=== PATIENT | female | born 1945 | race Caucasian/White ===

== ENCOUNTER 2017-03-01 16:51 | Observation (INO) | payer BC ==
[2017-03-01] MEDS ORDERED: Aspirin Low Dose CHEW TAB* 81 MG PO ONE (17:12)
[2017-03-01 17:31] LABS: Hematocrit 42 % (35-47); Hemoglobin 13.5 g/dl (12.0-16.0); Mean Corpuscular HGB Conc 32 g/dl (31-36); Mean Corpuscular Hemoglobin 30 pg (27-31); Mean Corpuscular Volume 93 fL (80-97); Mean Platelet Volume 9 um3 (7.4-10.4); Red Blood Count 4.54 10^6/ul (4.0-5.4); Red Cell Distribution Width 14 % (10.5-15)
[2017-03-01 17:40] LABS: Albumin 3.6 g/dL (3.2-5.2); EGFR African American 90.7 (>60); EGFR Non-African American 70.5 (>60); Globulin 2.8 g/dL (2-4); Total Bilirubin 0.5 mg/dL (0.2-1.0); Total Protein 6.4 g/dL (6.4-8.9)
[2017-03-01 17:41] LABS: Troponin I 0.01 ng/mL (<0.04)
--- NOTE | 2017-03-01 18:06 | RAD ---
HISTORY: Chest pain COMPARISONS: None VIEWS:1: Single frontal portable view of the chest at 5:42 PM. The patient is obliqued to the left. FINDINGS: LINES AND TUBES: None. CARDIOMEDIASTINAL SILHOUETTE: The cardiomediastinal silhouette is normal for portable technique. PLEURA: The costophrenic angles are sharp. No pleural abnormalities are noted. LUNG PARENCHYMA: The lungs are clear. ABDOMEN: The upper abdomen is clear. There is no subphrenic gas. BONES AND SOFT TISSUES: No bone or soft tissue abnormalities are noted. IMPRESSION: NO ACTIVE CARDIOPULMONARY DISEASE.
[2017-03-01] MEDS ORDERED: NS 0.9% 1000 ML* 2,000 ML IV ONE (18:59)
[2017-03-01] MEDS ORDERED: Ondansetron INJ* 2 MG/ML VIAL IV ONE (18:59)
[2017-03-01] MEDS ORDERED: Acetaminophen TAB* 325 MG PO PRN (21:54)
[2017-03-01] MEDS ORDERED: Morphine INJ* 2 MG/ML 1 ML SYRINGE IV PRN (21:54)
[2017-03-01] MEDS ORDERED: Ondansetron INJ* 2 MG/ML VIAL IV PRN (21:54)
[2017-03-01] MEDS ORDERED: traMADol TAB* 50 MG PO PRN (21:56)
--- NOTE | 2017-03-01 22:03 | RAD ---
CLINICAL HISTORY: Abdominal pain, nausea, vomiting, diarrhea COMPARISON: None TECHNIQUE: Multiple contiguous axial CT scans were obtained of the abdomen and pelvis, without intravenous contrast enhancement. Coronal and sagittal multiplanar reformations are submitted for review. Oral contrast was not administered. FINDINGS: The study is limited by the lack of intravenous contrast. This limits evaluation of the solid organs and vasculature. LUNG BASES: There is a small pericardial effusion LIVER: There are innumerable low-attenuation lesions throughout the hepatic parenchyma. The largest measures 2 cm in size and 11 Hounsfield units in attenuation.. BILE DUCTS: There is no intrahepatic or extrahepatic biliary dilatation. GALLBLADDER: The gallbladder is not clearly visualized. PANCREAS: The pancreas is normal, without mass or ductal dilatation. SPLEEN: Normal in size and appearance. UPPER GI TRACT: Evaluation of the gastrointestinal tract is limited by incomplete gastric distention. The upper GI tract is unremarkable. SMALL BOWEL AND MESENTERY: The small bowel is normal in contour, course, and caliber. There is no obstruction or dilatation. COLON: The colon is normal in contour, course, caliber. There is no pericolonic inflammatory change. There is a tubular, vermiform, hollow viscus that is blind ending, and originates from the cecum, consistent with a normal appendix. There is no periappendiceal inflammatory change. This is best seen on axial images 78 through 89. ADRENALS: Normal bilaterally. KIDNEYS: The kidneys are normal in shape, size, contour, and axis. There is no hydronephrosis or nephrolithiasis. BLADDER: The bladder is smooth in contour. PELVIC ORGANS: The pelvic organs are not visualized. AORTA: The aorta is normal. IVC: An IVC filter is noted LYMPH NODES: There is no lymphadenopathy by size criteria. ABDOMINAL WALL: There is no evidence for abdominal wall hernia. BONES AND SOFT TISSUES: There is a scoliotic curvature of the spine. Degenerative changes are noted. The patient is status post left hip arthroplasty. OTHER: None IMPRESSION: 1. THERE ARE INNUMERABLE LOW-ATTENUATION HEPATIC PARENCHYMAL LESIONS. WHILE THESE MAY REPRESENT MULTIPLE SIMPLE CYSTS OR HEPATIC HEMANGIOMAS, NEOPLASM, INCLUDING METASTATIC DISEASE TO THE LIVER, IS ALSO WITHIN THE DIFFERENTIAL. RECOMMEND CONSIDERATION OF FURTHER EVALUATION WITH MULTIPHASE CONTRAST-ENHANCED LIVER PROTOCOL CT, CONTRAST-ENHANCED MRI OF THE ABDOMEN, AND/OR ULTRASOUND OF THE ABDOMEN IN THE NONACUTE SETTING. 2. SMALL PERICARDIAL EFFUSION.
[2017-03-01 22:22] LABS: C Reactive Protein 2.14 mg/L (< 5.00); Magnesium 2.2 mg/dL (1.9-2.7)
[2017-03-01 22:32] LABS: TSH (Thyroid Stimulating Horm) 2.42 mcIU/mL (0.34-5.60)
[2017-03-01] MEDS: Heparin VIAL(*) 5000 UNITS/ML VIAL (FIVE THOUSAND) SUBCUT SCH (22:52)
[2017-03-01 23:30] LABS: Urine Bilirubin Negative (Negative); Urine Glucose Negative (Negative); Urine Nitrite Negative (Negative)
[2017-03-02] MEDS ORDERED: Metoclopramide IV* 5 MG/ML 2 ML VIAL IV PRN (01:18)
--- NOTE | 2017-03-02 02:57 | HP ---
CC: Dr. Eligio Arroyo * HISTORY AND PHYSICAL: DATE OF ADMISSION: 03/01/17 PROVIDER: Joshua Hobson NP ATTENDING PHYSICIAN: Kirill Higginbotham MD *(as dictated by Joshua Hobson NP) . PRIMARY CARE PROVIDER: Dr. Eligio Arroyo. CHIEF COMPLAINT: Nausea, vomiting. HISTORY OF PRESENT ILLNESS: Ms. Ibrahim is a 71-year-old female who came in to the ER today via EMS services after having intractable nausea, vomiting with accompanying shortness of breath while home in her camper. The patient was seen by EMS services who expressed concerns for ST changes on the patient's EKG. She was brought to the hospital, but reportedly was not agreement with all of the care that was offered to her. The patient had refused some of the medications initially, citing reported allergies. The patient has reportedly had foul-smelling stool, which was sent for stool culture. Per the ER record, there was concern that the patient may have some cardiac etiology of concern and reportedly, the patient stated that she is due for cardiac catheterization as outpatient, but has declined to have this up until now. The patient was offered admission for further evaluation, but initially refusing that she wanted to leave AMA; however, when she attempted to get up and walk out of her room, she became very weak and opted to stay. At the time I met the patient, she is very emotional and withdrawn and does not directly answer questions. She keeps asking me to call her son to let him know that she is dying and in the hospital. While I did assure her that she is currently hemodynamically stable and I was concerned for her having abdominal pain and nausea, vomiting and diarrhea, the patient states repeatedly that she needs me to call her son. She does give me the same history that she went out for lunch and then rushed back to her camper where she got really sick. This was around 1 o'clock in the afternoon. She denies any other recent travel. She denies any other sick contacts. She does state after she had the vomiting episode, she was short of breath for about 45 minutes, but this has resolved. She reported some subjective fever, warmth and chills for about 10 minutes, which has since resolved as well. She denies ever having chest pain. The patient offers no other report stating that "I am too tired and weak to talk any more." PAST MEDICAL HISTORY: From the [facility] records include hypertension, left bundle branch block, dilated cardiomyopathy, lumbar spinal stenosis, migraine with aura , incontinence, scoliosis, congenital spondylolisthesis, liver hemangioma and chronic right knee pain. HOME MEDICATIONS: 1. Tramadol 50 mg q.4 hours p.r.n. 2. Rizatriptan 10 mg q.2 hours p.r.n. 3. Benzonatate 100 mg t.i.d. 4. Excedrin Migraine 1 tab daily p.r.n. 5. Olmesartan 40 mg daily. 6. Amoxicillin 2000 mg prior to procedures. ALLERGIES: Include BUTALBITAL, ERYTHROMYCIN, FENTANYL, IBUPROFEN, IOHEXOL, METHYLPREDNISOLONE, PHENOTHIAZINE, PROCHLORPERAZINE, SULFA ANTIBIOTICS and TETRACYCLINE. FAMILY HISTORY: Unobtainable at this time. SOCIAL HISTORY: The patient will not provide. Nursing notes state that the patient has a never smoking history, as noted under the Meaningful Use questions. 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 The patient has asked me to call her son as an emergency contact and his name is Julián Kaba and he can be reached at [phone] and [phone]. REVIEW OF SYSTEMS: As per HPI. A 12-point review of systems was attempted. PHYSICAL EXAMINATION GENERAL: Ms. Ibrahim is a 71-year-old female who is lying in the ED stretcher. She is covered with many blankets. Her eyes are closed and her head is turned away from me. She does respond, but she mumbles and requires multiple questioning in order to obtain answers. VITAL SIGNS: Temperature 99.2, heart rate 80, respiratory rate 18, blood pressure 138/88, and O2 saturation 95% on room air. HEENT: Head is atraumatic, normocephalic. Face is symmetrical. Pupils are equal, round, and reactive to light. Extraocular movements are intact. Oral mucosa appears somewhat dry. NECK: Supple. No lymphadenopathy appreciated. LUNGS: Clear to auscultation. No accessory muscle use. CARDIAC: S1, S2 heart sounds. The patient has an irregularly regular rate. No murmurs, rubs or gallops noted. The patient has no peripheral edema. Distal pulses are 2+ bilaterally. ABDOMEN: Soft. There is tenderness in the right lower quadrant, where the patient states she had a hernia repair and diffusely across the mid abdomen. Bowel sounds are hyperactive. MUSCULOSKELETAL: There is no clubbing or cyanosis. The patient has full range of motion in the extremities. SKIN: Limited assessment. The patient appears to have capillary hemangioma across the abdomen, but appears otherwise intact. NEURO: Difficult to assess given the patient's uncooperativeness, but she moves all extremities and sensation is intact to light touch. PSYCH: The patient is alert and appears to be oriented x3, although the patient is somewhat histrionic and limited in interaction. LABORATORY DATA AND DIAGNOSTIC TESTING: WBC is 14.0, hemoglobin is 13.5, hematocrit 42, platelet count 162. Chemistry: Sodium 139, potassium 4.0, chloride 104, carbon dioxide 29, BUN 20, creatinine 0.8, glucose 112, lactic acid 0.7, calcium 9.0, total bili 0.5, AST 21, ALT 18, alk phos 128, troponin 0.01, albumin 3.6. The patient had a chest x-ray that shows no active cardiopulmonary disease. EKG shows sinus rhythm with premature ventricular contractions, left bundle branch block and some mild ST elevations in leads V1 through V4. There are no old EKGs for review. ASSESSMENT AND PLAN: Ms. Ibrahim is a 71-year-old male who presents today with concern for intractable nausea, vomiting and diarrhea and EKG changes. She will be admitted under observation to the telemetry floor. Plans are as follows : 1. Intractable nausea, vomiting, diarrhea: There is concern for potential gastroenteritis or colitis as well as potential food poisoning given the patient 's story. Stool culture has been sent in the ER and as the patient does have abdominal tenderness, I would like to take a look at the CT of the abdomen and pelvis. The patient is refusing to try any contrast and states that she has a previous allergy to IV DYE CONTRAST, so we will have to do this without contrast at this time. Additionally, we will continue the patient on IV fluids and p.r.n. antiemetics. She has allergy to COMPAZINE, so we will use Zofran and await the results of her stool culture. Recheck CBC and BMP in the morning. 2. EKG changes: The patient denies chest pain, is currently asymptomatic in that regard. Otherwise, symptom of concern at the moment is nausea and vomiting , and I am going to check a troponin now and recheck an EKG. Again, the patient is actually due for an outpatient cardiac catheterization that her PCP apparently has been trying to get her to. We can obtain an echocardiogram here to evaluate for any wall motion abnormalities and continue to monitor. The patient should have outpatient followup as previously directed unless we see that she is acutely having a cardiac event. Patient has a previously known LBBB. 3. History of hypertension: Continue home olmesartan. 4. History of cardiomyopathy: Continue home Toprol. 5. FEN: The patient will be ordered clear liquids. 6. DVT prophylaxis: Subcu heparin. 7. Code status: The patient is a full code. TIME SPENT: Time spent on this admission was approximately 65 minutes, more than half of that time was spent [id number] with the patient obtaining history and physical, performing physical examination, and reviewing plan of care. Plan of care was also reviewed with my attending, Dr. Higginbotham, who has reviewed EKG and records with me, and is in agreement. JOSHUA HOBSON, OLGA [id number]/[facility] #: [id number] ISAIAH
[2017-03-02 04:05] VITALS: BP 100/45
[2017-03-02] MEDS: Heparin VIAL(*) 5000 UNITS/ML VIAL (FIVE THOUSAND) SUBCUT SCH (05:10)
[2017-03-02 06:07] LABS: Hematocrit 38 % (35-47); Hemoglobin 12.3 g/dl (12.0-16.0); Mean Corpuscular HGB Conc 33 g/dl (31-36); Mean Corpuscular Hemoglobin 30 pg (27-31); Mean Corpuscular Volume 92 fL (80-97); Mean Platelet Volume 9 um3 (7.4-10.4); Red Cell Distribution Width 14 % (10.5-15); White Blood Count 11.9 10^3/ul (3.5-10.8)
[2017-03-02 06:22] LABS: BUN/Creatinine Ratio 31.1 (8-20); Calcium 8.5 mg/dL (8.6-10.3); EGFR Non-African American 96.4 (>60); Potassium 3.6 mmol/L (3.5-5.0)
--- NOTE | 2017-03-02 08:06 | DCNOTE ---
Subjective Date of Service: 03/02/17 Interval History: No more NVD. No new c/o, anxious to go home. Objective Active Medications: Acetaminophen (Tylenol Tab*) 650 mg PO Q4H PRN PRN Reason: FEVER/PAIN Aspirin (Aspirin Low Dose Tab*) 81 mg PO DAILY [facility] Benzonatate (Tessalon Cap*) 100 mg PO TID [facility] Heparin Sodium (Porcine) (Heparin Vial(*)) 5,000 units SUBCUT Q8HR [facility] Last Admin: 03/02/17 05:10 Dose: 5,000 units Lactated Ringer's (Lactated Ringers 1000 Ml Bag*) 1,000 mls @ 100 mls/hr IV PER RATE [facility] Last Admin: 03/01/17 22:44 Dose: 100 mls/hr Metoclopramide HCl (Reglan Iv*) 10 mg IV Q6H PRN PRN Reason: NAUSEA Last Admin: 03/02/17 01:38 Dose: 10 mg Morphine Sulfate (Morphine Inj (Syringe)*) 2 mg IV Q4H PRN PRN Reason: PAIN Ondansetron HCl (Zofran Inj*) 4 mg IV Q4H PRN PRN Reason: NAUSEA/VOMITING Tramadol HCl (Ultram*) 50 mg PO Q4H PRN PRN Reason: PAIN Valsartan (Diovan Tab*) 320 mg PO DAILY [facility] Vital Signs 03/01/17 03/01/17 03/02/17 21:30 22:05 03:58 Temperature 99 F 98.8 F Pulse Rate 94 80 71 Respiratory 21 19 16 Rate Blood Pressure 165/86 134/83 100/45 (mmHg) O2 Sat by Pulse 95 96 96 Oximetry Oxygen Devices in Use Now: None Appearance: Alert, standing by her bed. In good spirits. Looks comfortable. Eyes: No Scleral Icterus Abdominal: NL Sounds; No Tenderness; No Distention, No Hepatosplenomegaly, - Extremities: No Edema, No Clubbing, Cyanosis, - Skin: No Rash or Ulcers, No Nodules or Sclerosis, - Neurological: Alert and Oriented x 3, NL Sensation Result Diagrams: 03/02/17 05:55 03/02/17 05:55 Assess/Plan/Problems-Billing Assessment: - Patient Problems (1) Food poisoning Current Visit: Yes Status: Acute Code(s): T62.91XA - TOXIC EFFECT OF UNSP NOXIOUS SUB EATEN FOOD, ACC, INIT SNOMED Code(s): 57402460 Comment: Clinical history and course c/w staph. food poisonint. Abnl CT scan. Pt advised of this, given CDROM to bring to her doctors. She will make an appt this week with her PCP. (2) Abnormal ECG Current Visit: Yes Status: Acute Code(s): R94.31 - ABNORMAL ELECTROCARDIOGRAM [ECG] [EKG] SNOMED Code(s): 544942254 Comment: Troponins 0.01, 0.04. Pt given copy of her ECG. 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 Pt states her LVEF is 35%. (3) HTN (hypertension) Current Visit: Yes Status: Acute Code(s): I10 - ESSENTIAL (PRIMARY) HYPERTENSION SNOMED Code(s): 85919548 Comment: Continue her home meds. Status and Disposition: Discharge now. Pt returning to her home in [place] today, will call her doctors Saturday 03/03.
[2017-03-02] MEDS ORDERED: Valsartan TAB* 160 MG PO SCH (09:00)
[2017-03-02] MEDS ORDERED: Benzonatate CAP* 100 MG PO SCH (09:00)
[2017-03-02] MEDS ORDERED: Aspirin Low Dose CHEW TAB* 81 MG PO SCH (09:00)
--- NOTE | 2017-03-02 15:28 | DS ---
DISCHARGE SUMMARY: DATE OF ADMISSION: 03/01/17 DATE OF DISCHARGE: 03/02/17 HISTORY: This 71-year-old woman presented with nausea and vomiting. This started within 1 hour after eating at a local restaurant. The rest of history is detailed in the admission note. The patient was quite well next morning. She is very pleasant and coherent. She seemed to be quite competent and aware of her medical appointments and her medications. My clinical impression is that she had food poisoning; the history and clinical course is very compatible with this. She is going to return to her home in [place] today. On 03/03/17, she will call her primary care provider and laser engraver and have appointments made within a week. I advised her that a CT scan of the abdomen is abnormal, we gave her the CD-ROM of her CT scan to give to her providers. She is given a copy of her EKG as well. She was told to take all her usual medications as prescribed. I note that the med rec here was not done well. She showed me a bottle of metoprolol she had with her that was not listed in the med rec. FINAL DIAGNOSES: 1. Food poisoning. 2. Cardiomyopathy with left bundle branch block. 3. Migraine headaches. 4. Hypertension. 5. Abnormal CT scan of the abdomen. DISCHARGE MEDICATIONS: The patient will resume medications per her providers with no changes on this admission. [id number]/[facility] #: [id number] ISAIAH
--- NOTE | 2017-03-02 22:42 | ED ---
Camille Kitchen Thomas, scribed for Sravan Maxwell MD on 03/01/17 at 1711 . HPI Cardiac - HPI Summary HPI Summary: The pt is a 71 y/o F BIBA due to SOB that lasted 45 minutes. She called an ambulance due to this and because she also vomitted. The SOB has since resolved. She additionally c/o vomiting, diarrhea, nausea, and chills. She denies CP. Her PCP is at [facility]. She claims to have 27 allergies and is allergic to contrast. She was camping today. She denies a PMHx of coronary stents and CABG. PMHx: lumbar spinal stenosis, HTN, scoliosis, liver hemagioma, LBBB, meningioma, dilated cardiomyopathy, femoral hernia, migraine. SHx: no tobacco, no drinking. She is on metoprolol. - History of Current Complaint Stated Complaint: POSSIBLE STEMI - Allergy/Home Medications Allergies/Adverse Reactions: Allergies Allergy/AdvReac Type Severity Reaction Status Date / Time Unable to Obtain Allergy Verified 03/01/17 19:32 PMH/Surg Hx/FS Hx/Imm Hx Previously Healthy: No Cardiovascular History: Reports: Hx Hypertension, Other Cardiovascular Problems/ Disorders - POS: dilated cardiomyopathy; femoral hernia GI History: Reports: Other GI Disorders - POS: liver hemangioma Musculoskeletal History: Reports: Hx Scoliosis, Other Musculoskeletal History - POS: lumbar spinal stenosis Neurological History: Reports: Hx Migraine - Family History Known Family History: Negative: Diabetes - Social History Occupation: Employed Full-time Alcohol Use: None Hx Tobacco Use: No Smoking Status (MU): Never Smoked Tobacco Review of Systems Positive: Chills. Negative: Fever Eyes: Negative Negative: Erythema - eyes ENT: Negative Negative: Sore Throat Cardiovascular: Negative Negative: Chest Pain Positive: Shortness Of Breath - resolved in the ED. Negative: Cough Positive: Vomiting, Diarrhea, Nausea. Negative: Abdominal Pain Genitourinary: Negative Negative: dysuria, hematuria Musculoskeletal: Negative Negative: Myalgia, Edema - leg Skin: Negative Negative: Rash Neurological: Negative, Other - NEG: dizziness Psychological: Normal All Other Systems Reviewed And Are Negative: Yes Physical Exam - Summary Physical Exam Summary: Constitutional: Well-developed, Well-nourished, Alert. (-) Distressed Skin: Warm, Dry HENT: Normocephalic; Atraumatic Eyes: Conjunctiva normal Neck: Musculoskeletal ROM normal neck. (-) JVD, (-) Stridor, (-) Tracheal deviation Cardio: Rhythm regular, rate normal, Heart sounds normal; Intact distal pulses; The pedal pulses are 2+ and symmetric. Radial pulses are 2+ and symmetric. (-) Murmur Pulmonary/Chest wall: Effort normal. (-) Respiratory distress, (-) Wheezes, (-) Rales Abd: Soft, (-) Tenderness, (-) Distension, (-) Guarding, (-) Rebound Musculoskeletal: (-) Edema Lymph: (-) Cervical adenopathy Neuro: Alert, Oriented x3 Psych: Mood and affect Normal Triage Information Reviewed: Yes Vital Signs Reviewed: Yes Diagnostics - Laboratory Result Diagrams: 03/01/17 17:00 03/01/17 17:00 Lab Statement: Any lab studies that have been ordered have been reviewed, and results considered in the medical decision making process. - Radiology CXR Xray Interpretation: No Acute Changes - No active cardiopulmonary disease Radiology Interpretation Completed By: Radiologist - EKG 16:52 Cardiac Rate: NL EKG Interpretation: Sinus Rhythm. LBBB. No STEMI. T-wave inversions V4-V6. ST depressions V5-V6 Re-Evaluation - Re-Evaluation First Eval Re-Evaluation Time: 19:20 Change: Unchanged Comment: Pt is signing out AMA. She is aware that she is at risk for a cardiac event and may have had a cardiac event. Disposition - Course Assessment/Plan: The pt is a 71 y/o F BIBA due to SOB that lasted 45 minutes. She called an ambulance due to this and because she also vomitted. The SOB has since resolved. She additionally c/o vomiting, diarrhea, nausea, and chills. She denies CP. Her PCP is at [facility]. She claims to have 27 allergies and is allergic to contrast. She was camping today. She denies a PMHx of coronary stents and CABG. PMHx: lumbar spinal stenosis, HTN, scoliosis, liver hemagioma, LBBB, meningioma, dilated cardiomyopathy, femoral hernia, migraine. SHx: no tobacco, no drinking. She is on metoprolol. In the ED course she was given ASA , IV fluids, ondansetron. Bloodwork revealed WBC 14.0, Neut% 93.0, Lymph% 3.3, Absolute Neuts 13.1, absolute lymphs 0.5, BUN/Creatinine 25.0, glucose 112, AlkPhos 128. Consulted with Dr. Arroyo, who said she had a pre-operative cardiac eval on december 31 for a LBBB. She had an echo. Her ejection fraction was 35% . She was recommended for cardiac cath at that time but she declined it. A CXR revealed no active cardiopulmonary disease. An EKG showed Sinus Rhythm. LBBB. No STEMI. T-wave inversions V4-V6. ST depressions V5-V6. Upon re-eval, pt is signing out AMA. She is aware that she is at risk for a cardiac event and may have a cardiac event in the future. She left AMA - Diagnoses Provider Diagnoses: SOB (shortness of breath), Abnormal EKG, Gastroenteritis - Physician Notifications Discussed Care Of Patient With: Eligio Arroyo MD Time Discussed With Above Provider: 19:05 Instructed by Provider To: Other - Talked with Dr. Arroyo, her PCP. She had a pre -operative cardiac eval on december 31 for a LBBB. She had an echo. Her ejection fraction was 35%. She was recommended for cardiac cath at that time but she declined it. Discharge - Discharge Plan Condition: Fair Disposition: AGAINST MEDICAL ADVICE Prescriptions: Ondansetron ODT TAB* [Zofran 4 MG Odt TAB*] 4 mg PO Q8H PRN #10 tab.odt PRN Reason: Nausea/Vomiting Patient Education Materials: Gastroenteritis (ED), Dyspnea (ED) Referrals: Eligio Arroyo MD [Primary Care Provider] - 3 Days Additional Instructions: RETURN TO THE EMERGENCY DEPARTMENT FOR CHANGING OR WORSENING SYMPTOMS The documentation as recorded by the Camille hernandez Thomas accurately reflects the service I personally performed and the decisions made by , Sravan Maxwell MD.
== END 2017-03-02 09:00 | disposition home or self-care (01) ==
LOC: ED 16:51 → MEDTELE 21:27
PROVIDERS: ADMIT Hospitalist; ATTEND Internal Medicine
DX: T62.91XA Toxic effect of unspecified noxious substance eaten as food, accidental (unintentional), initial encounter (principal); R06.02 Shortness of breath; R94.31 Abnormal electrocardiogram [ECG] [EKG]; R11.2 Nausea with vomiting, unspecified; R10.9 Unspecified abdominal pain; R19.7 Diarrhea, unspecified; I10 Essential (primary) hypertension; I49.1 Atrial premature depolarization; I44.7 Left bundle-branch block, unspecified; I42.9 Cardiomyopathy, unspecified; K76.9 Liver disease, unspecified
CPT/HCPCS: 36415; 71010; 74176; 80048; 80053; 81003; 83605; 83735; 83880; 84145; 84443; 84484; 85025; 86140; 87045; 87046; 87177; 87209; 87328; 87329; 87493; 87899; 93005; 96372; 96374; 96375; 99284; A9270-GY; G0378; J1644; J2405